=== PATIENT | male | born 1985 | race Caucasian/White ===

== ENCOUNTER 2025-01-24 05:20 | Emergency (ER) | payer OTHER ==
[~2025-01-24] VITALS: Ht 175.3 cm; Wt 83.0 kg
[2025-01-24 05:25] VITALS: O2SAT 99
[2025-01-24 07:02] LABS: BG BASE EXCESS -1.2 mmol/L (-2.0-3.0); BG CARBOXYHEMOGLOBIN 0.9 % (0.5-1.5); BG DEOXYHEMOGLOBIN 3.3 % (0.0-5.0); BG FRACTION INSPIRED OXYGEN 21; BG HCO3 ACT 22.6 mmol/L (21.0-28.0); BG METHEMOGLOBIN 0.1 % (0.5-1.5); BG OXYGEN SATURATION 96.7 % (94.0-98.0); BG OXYHEMOGLOBIN 95.7 % (94.0-98.0); BG PCO2 35.6 mmHg (35.0-48.0); BG PH 7.421 (7.350-7.450); BG PO2 82.6 mmHg (83.0-108.0); BG SAMPLE SITE LEFT RADIAL; BG TOTAL HEMOGLOBIN 16.5 g/dL (13.5-17.5); BG VENT MODE ROOM AIR
[2025-01-24] MEDS ORDERED: TOPUD MT (07:59)
[2025-01-24 08:13] VITALS: BP 142/88; PULSE 78; RESP 18; TEMP 36.9; O2SAT 99
== END 2025-01-24 08:18 | disposition home or self-care (01) ==
LOC: ER 05:20
DX: Z77.028 Contact with and (suspected) exposure to other hazardous aromatic compounds (principal)
CPT/HCPCS: 36600; 82375; 82805; 99283